=== PATIENT | male | born 1955 | race African-American/Black ===

== ENCOUNTER 2019-12-04 20:35 | Inpatient (IN) | payer MEDICARE, MEDICAID ==
[~2019-12-04] VITALS: Ht 182.9 cm; Wt 95.3 kg
[2019-12-04] MEDS ORDERED: ONDANSETRON HCL 4MG/2ML INJ IV STA (21:21)
[2019-12-04] MEDS ORDERED: MORPHINE SULFATE 4 MG/ML CPJ (NOT FOR IM USE) IV STA (21:21)
[2019-12-04] MEDS ORDERED: SODIUM CHLORIDE 0.9% 1,000 ML IV ONE (21:21)
[2019-12-04 21:58] LABS: BASOPHILS % 0.4 % (0.0-2.0); EOSINOPHILS % 0.9 % (0.0-5.0); HEMATOCRIT. 37.7 % (42.0-52.0); HEMOGLOBIN. 13.1 g/dL (14.0-18.0); LYMPHOCYTES % 29.5 % (20.0-50.0); MEAN CORPUSCULAR HEMOGLOBIN 29.1 pg (28.0-32.0); MEAN CORPUSCULAR VOLUME 83.8 fL (80.0-94.0); MEAN PLATELET VOLUME 7.6 fl (7.4-10.4); MONOCYTES % 8.1 % (2.0-8.0); NEUTROPHILS % 61.1 % (40.0-76.0); PLATELET 233 x1000/uL (130-400); RED BLOOD CELL COUNT 4.49 mill/uL (4.7-6.1); RED CELL DISTRIBUTION WIDTH 13.2 % (11.6-14.6)
[2019-12-04 22:00] LABS: CLARITY URINE CLEAR (CLEAR); COLOR URINE YELLOW (YELLOW); KETONES URINE NEGATIVE (NEGATIVE); LEUKOCYTE ESTERASE URINE NEGATIVE (NEGATIVE); NITRITE URINE NEGATIVE (NEGATIVE); OCCULT BLOOD URINE NEGATIVE (NEGATIVE); PH URINE 5.5 (4.5-8.0); PROTEIN URINE NEGATIVE (NEGATIVE); SPECIFIC GRAVITY URINE 1.008 (1.005-1.030); UROBILINOGEN URINE 0.2 E.U./dL (0.2-1.0)
[2019-12-04 22:02] LABS: CHLORIDE 104 mEq/L (98-107)
[2019-12-04 22:10] LABS: *AMPHETAMINES SCREEN URINE NEGATIVE (NEGATIVE)
[2019-12-04 22:11] LABS: *BARBITURATES SCREEN URINE NEGATIVE (NEGATIVE); *BENZODIAZEPINES SCREEN URINE NEGATIVE (NEGATIVE); *COCAINE SCREEN URINE NEGATIVE (NEGATIVE); CANNABINOID URINE SCREEN NEGATIVE (NEGATIVE); METHADONE URINE SCREEN NEGATIVE (NEGATIVE); OPIATES URINE SCREEN NEGATIVE (NEGATIVE)
[2019-12-04 22:11] LABS: D-DIMER 0.26 mg/L FEU (<0.50); PARTIAL THROMBOPLASTIN TIME 26.9 sec (23.4-31.0)
[2019-12-04 22:12] LABS: PHENCYCLIDINE URINE SCREEN NEGATIVE (NEGATIVE)
[2019-12-04] MEDS ORDERED: IOHEXOL-350 100 ML BOTTLE ONE (23:42)
[2019-12-04] MEDS ORDERED: ASPIRIN 325MG EC TABLET PO ONE (23:45)
[2019-12-05] MEDS ORDERED: ONDANSETRON HCL 4MG/2ML INJ IV PRN (09:00)
[2019-12-05] MEDS ORDERED: BENAZEPRIL 10MG TABLET PO SCH ×2 (09:00→15:30)
[2019-12-05] MEDS: AMLODIPINE 10MG TABLET PO SCH (09:08)
[2019-12-05] MEDS: ASPIRIN 81MG TABLET PO SCH (09:22)
[2019-12-05] MEDS ORDERED: FAMOTIDINE 20MG TABLET PO NR (13:15)
[2019-12-05] MEDS ORDERED: AMLODIPINE 5MG TABLET PO SCH (15:30)
[2019-12-05] MEDS ORDERED: CLONIDINE 0.1MG TABLET PO PRN (21:00)
[2019-12-05] MEDS: FAMOTIDINE 20MG TABLET PO SCH (21:25)
[2019-12-05] MEDS: BENAZEPRIL 10MG TABLET PO SCH (21:27)
[2019-12-05] MEDS: ACETAMINOPHEN 325MG TABLET PO PRN (21:27)
[2019-12-05 22:00] VITALS: BP 149/98
[2019-12-06] VITALS (7 sets, daily range): BP systolic 124–179; BP diastolic 64–102
[2019-12-06] MEDS: GUAIFENESIN 600MG ER TABLET PO SCH ×3 (04:05→20:57)
[2019-12-06] MEDS: ENOXAPARIN 40MG/0.4ML SYR SUBCUT SCH ×2 (04:11→20:57)
[2019-12-06] MEDS: IPRATROPIUM/ALBUTEROL 0.5-3(2.5)MG/3ML NEB HHN SCH ×5 (04:13→21:10)
[2019-12-06] MEDS: AMLODIPINE 10MG TABLET PO SCH (08:20)
[2019-12-06] MEDS: ASPIRIN 81MG TABLET PO SCH (08:20)
[2019-12-06] MEDS: BENAZEPRIL 10MG TABLET PO SCH ×2 (08:21→20:57)
[2019-12-06] MEDS: PREDNISONE 20MG TABLET PO SCH (11:44)
[2019-12-06] MEDS ORDERED: ALBU18HF2 IH (13:23)
[2019-12-06] MEDS ORDERED: FAMO20TA8 PO (13:23)
[2019-12-06] MEDS: ACETAMINOPHEN 325MG TABLET PO PRN ×2 (13:49→20:57)
[2019-12-06] MEDS: FAMOTIDINE 20MG TABLET PO SCH (20:57)
[2019-12-07] VITALS: BP 183/105
[2019-12-07 01:00] VITALS: BP 140/90
[2019-12-07] MEDS: IPRATROPIUM/ALBUTEROL 0.5-3(2.5)MG/3ML NEB HHN SCH ×4 (02:13→13:37)
[2019-12-07 04:00] VITALS: BP 143/84
[2019-12-07] MEDS: PREDNISONE 20MG TABLET PO SCH (06:16)
[2019-12-07] MEDS: ASPIRIN 81MG TABLET PO SCH (08:07)
[2019-12-07] MEDS: ACETAMINOPHEN 325MG TABLET PO PRN (08:07)
[2019-12-07] MEDS: AMLODIPINE 10MG TABLET PO SCH (08:12)
[2019-12-07] MEDS: ENOXAPARIN 40MG/0.4ML SYR SUBCUT SCH (08:12)
[2019-12-07] MEDS: BENAZEPRIL 10MG TABLET PO SCH (08:12)
[2019-12-07] MEDS: GUAIFENESIN 600MG ER TABLET PO SCH (08:14)
[2019-12-07 12:52] VITALS: BP 156/94
[2019-12-07 13:16] VITALS: BP 156/94
== END 2019-12-07 13:45 | disposition home or self-care (01) | DRG 203 ==
LOC: ER 20:35 → 5WST 23:26 → EDBEDREQ 23:29 → EDBEDREQTM 23:29 → ENRESERV 12-05 19:43
PROVIDERS: ADMIT Internal Medicine; ATTEND Internal Medicine
DX: J20.9 Acute bronchitis, unspecified (principal); I10 Essential (primary) hypertension; D64.9 Anemia, unspecified; E11.9 Type 2 diabetes mellitus without complications; G89.29 Other chronic pain; M54.5 Low back pain; J44.9 Chronic obstructive pulmonary disease, unspecified; Z88.0 Allergy status to penicillin; Z87.891 Personal history of nicotine dependence
CPT/HCPCS: 36415; 71045; 71275; 74174; 80053; 80061; 80305; 81003; 82962; 83036; 83880; 84484; 85025; 85379; 93005; 93306; 96374; 96375; 99285; J1650; J2270; J2405; J7030; J7512; Q9967